=== PATIENT | female | born 1940 | race Caucasian/White ===

== ENCOUNTER 2017-07-11 09:02 | Day surgery (SDC) | payer OTHER ==
[2017-07-11] MEDS ORDERED: Ringers Lactate 1,000 ML IV ONE (09:46)
[2017-07-11] MEDS ORDERED: PROPOFOL 200 MG/20 ML VIAL IV ONE (11:16)
--- NOTE | 2017-07-11 11:47 | ENDO RPT ---
[address], [address] EGD PROCEDURE REPORT EXAM DATE: 07/11/2017 PATIENT NAME: Claudia Burleson MR#: [id number] BIRTHDATE: 1940 ATTENDING: Felix Contreras Dr STATUS: outpatient CREW ATTENDANT: Vita Meneses and Nyla Montero RN INDICATIONS: The patient is a 76 yr old Female here for an EGD due to belching, dyspepsia, mid epigastric abdominal pain, and weight loss PROCEDURE PERFORMED: EGD with biopsy MEDICATIONS: Per Anesthesia. TOPICAL ANESTHETIC: none CONSENT: The patient understands the risks and benefits of the procedure and understands that these risks include, but are not limited to: sedation, allergic reaction, infection, perforation and/or bleeding. Alternative means of evaluation and treatment include, among others: physical exam, x-rays, and/or surgical intervention. The patient elects to proceed with this endoscopic procedure. DESCRIPTION OF PROCEDURE: During intra-op preparation period all mechanical medical equipment was checked for proper function. Hand hygiene and appropriate measures for infection prevention was taken. Procedure, possible complications, and alternatives including but not limited to the possibility of bleeding, perforation, tear, infection, sepsis, need for surgery, need for blood transfusion, and anesthesia related complications were explained to the patient. After the risks, benefits and alternatives of the procedure were thoroughly explained, Informed consent was verified, confirmed and timeout was successfully executed by the treatment team. The patient was placed in the left lateral position. The patient was anesthetized with topical anesthesia. Through the anesthetized oropharyngeal area, the scope was passed without any difficulty. The [id number] ([id number]) and [id number] ([id number]) endoscope was introduced through the mouth and advanced to the third portion of the duodenum. Retroflexed views revealed a small hiatal hernia. The gastroscope was then slowly withdrawn and removed. Non-erosive esophagitis was found in the lower esophagus. A small sliding hiatal hernia was found. Few small 2-4 mm sessille poliyps in the body / fundus, s/p biopsy. An erosion was found in the antrum. Multiple biopsies were obtained and sent to pathology. 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 ADVERSE EVENTS: There were no complications. IMPRESSIONS: 1. Non-erosive esophagitis in the lower esophagus 2. Small sliding hiatal hernia 3. Few small 2-4 mm sessille poliyps in the body / fundus, s/p biopsy 4. Erosion in the antrum 4. 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 await biopsy results 2. acid suppression therapy REPEAT EXAM: Felix Contreras Dr eSigned: Felix Contreras Dr 07/11/2017 11:46 AM cc: Ricahrd Lamb CPT CODES: ICD9 CODES: PATIENT NAME: Claudia Burleson MR#: [id number]
[2017-07-11] MEDS ORDERED: MIDAZOLAM HCL 2 MG/2 ML INJ ONE (13:05)
--- NOTE | 2017-07-11 14:09 | RAD REPORT ---
EXAM DESCRIPTION: MRI - Cholangiogram - 07/11/2017 1:33 pm CLINICAL HISTORY: Abdominal pain, history of cholecystectomy COMPARISON: None. FINDINGS: Gallbladder is absent. Normal T2 activity is seen in bowel and in the system. No pancre atic duct dilatation. Extrahepatic biliary tree is 8 mm or less. This is normal range for a post chol ecystectomy patient. No duct stone, stricture or mass identified. IMPRESSION: Normal post cholecystectomy MRCP.
== END 2017-07-11 13:55 | disposition home or self-care (01) ==
LOC: OR 09:02
PROVIDERS: ATTEND Internal Medicine Gastroenterology
PROC: 0DB68ZX Excision of Stomach, Via Natural or Artificial Opening Endoscopic, Diagnostic (ICD-10-PCS; principal; 2017-07-11 11:15)
DX: K29.50 Unspecified chronic gastritis without bleeding (principal); K25.9 Gastric ulcer, unspecified as acute or chronic, without hemorrhage or perforation; K31.7 Polyp of stomach and duodenum; K20.8 Other esophagitis; K29.80 Duodenitis without bleeding; K44.9 Diaphragmatic hernia without obstruction or gangrene; R63.4 Abnormal weight loss; Z88.6 Allergy status to analgesic agent
CPT/HCPCS: 43239; 74181; 88305; 88312; J2250

== ENCOUNTER → 2017-12-06 | Day surgery (SDC) | payer OTHER ==
--- NOTE | 2017-12-06 10:45 | RAD REPORT ---
EXAM DESCRIPTION: US - Breast Core BX w/US Guidance - 12/06/2017 10:32 am CLINICAL HISTORY: Lower inner quadrant left breast mass 2.6 cm COMPARISON: Mammogram and ultrasound studies November 29 TECHNIQUE: The patient presents for ultrasound-guided biopsy of a previously detailed 2.6 cm mass in the lower inner quadrant of the left breast. The ultrasound-guided core biopsy procedure, risks and alternatives were discussed with the patient i n detail. After answering all questions, both oral and written consent were obtained. Time out proced ure was performed. The patient had no contraindicated allergy or medication history. Patient has been off her 81 milligram aspirin therapy for 7 days. Preliminary imaging identified the 2.6 cm lobulated mass. The anterior breast was prepped and draped in the usual sterile fashion. From a inferolateral approach, skin and deeper tissues were anesthetize d with 1% lidocaine. Under direct sonographic visualization a 14 gauge vacuum assisted core biopsy ne edle was advanced and placed at the margin of the mass. There were a total of 3 core biopsies obtaine d under direct sonographic guidance. At the conclusion of the procedure a localization clip was placed under sonographic guidance. Post biopsy imaging showed no hematoma or measurable bleeding within the breast. Hemostasis was obtai ynes at the skin site with a sterile bandage placed. Post procedure care and precaution instructions were given to the patient. IMPRESSION: 1. Ultrasound-guided core biopsy was performed of the left breast lower inner quadrant m ass. All obtained material was given to pathology for histologic assessment. 2. Post biopsy localization clip was placed under ultrasound guidance.
== END | disposition home or self-care (01) ==
LOC: DS 09:26
PROVIDERS: ATTEND Family Medicine
DX: C50.312 Malignant neoplasm of lower-inner quadrant of left female breast (principal)
CPT/HCPCS: 19083; 88305